=== PATIENT | male | born 2000 | race Caucasian/White ===

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

== ENCOUNTER 2022-02-21 08:06 | Inpatient (IN) | payer BC, MEDICAID, SELFPAY ==
[2022-02-21] VITALS (7 sets, daily range): BP systolic 112–141; BP diastolic 67–87; PULSE 55–89; RESP 14–16; TEMP 36.2–37.2; O2SAT 98–100; BMI 21.6
--- NOTE | 2022-02-21 08:21 | CT_ITS ---
INDICATION: abdominal pain -- IV PO Contrast EXAMINATION: CT ABDOMEN AND PELVIS WITH CONTRAST - CT Abdomen And Pelvis W/ Contrast Injection TECHNIQUE: Helically acquired images were obtained of the abdomen and pelvis following IV contrast. A radiation dose optimization technique was used for this scan. IV Contrast dosage and agent: 100 mL of [id number]. Oral contrast: GASTROGRAFIN. COMPARISON: None. FINDINGS: LOWER CHEST: Lung bases are clear. No cardiomegaly or pericardial effusion. LIVER: Homogeneous. No focal mass. GALLBLADDER AND BILIARY TREE: No calcified gallstones. No gallbladder distension or wall edema. No intra- or extrahepatic biliary ductal dilation. PANCREAS: No focal cystic or solid mass. SPLEEN: Normal size without focal cystic or solid mass. ADRENAL GLANDS: No nodules. KIDNEYS AND URETERS: Normal renal size and position. No hydronephrosis. PERITONEUM: No ascites or free air. No other fluid collection. BOWEL: A donut-shaped appearance with bowel within bowel appearance is seen in the right lower quadrant) the small bowel loops, at this level also there is cessation of the flow of contrast visualized findings suggestive of an intussusception cyst seen on axial series 2 image 86, coronal series 601 image 32 and sagittal series 602 image 6. Mild prominence of the opacified proximal small bowel loops is visualized on axial series 2 image 89 that measure approximately 1.5 cm in diameter, the distal small bowel loops are not opacified and measure 0.6 cm as seen on axial series 2 image 83. Mild thickening of the wall of the terminal ileum is visualized on coronal series 601 image 33. The appendix demonstrates unremarkable opacification of its lumen with no surrounding soft tissue stranding is visualized on coronal series 601 image 29-31. Mild thickening of the mcnair of the large bowel visualized most prominent in the sigmoid colon along the left lateral aspect of the pelvis is visualized on axial series 2 image 88, coronal series 601 image 51 and sagittal series 602 image 90 7 No evidence of acute appendicitis. No stomach or bowel distension. No focal inflammatory change. LYMPH NODES: No enlarged mesenteric or retroperitoneal lymph nodes. VESSELS: Aorta is non-dilated. URINARY BLADDER: Unremarkable. REPRODUCTIVE ORGANS: No pelvic masses. ABDOMINAL WALL: No discrete abdominal or pelvic wall hernia. BONES: No lytic or blastic abnormality. CT/Abdomen/Pelvis WITH Contrast IMPRESSION: Small bowel in bowel appearance suggestive of INTUSSUSCEPTION visualized in the right pelvis. Thickening of the wall of the bowel loops visualized most prominent in the sigmoid colon but no evidence of acute diverticulitis. The appendix is visualized and is unremarkable. Gallbladder is unremarkable. No evidence of obstructive uropathy. Electronically Signed: Timothy Ferreira MD at 10:20 EDT ,
--- NOTE | 2022-02-21 08:22 | EX.ED.DYSGE1 ---
HPI History of Present Illness Chief Complaint: Abd Pain Narrative Narrative: Patient presents with right upper quadrant abdominal pain for 2 days. No nausea or vomiting he has had somewhat decreased p.o. intake. No anorexia. No recent fever or chills, he has no flank pain or urinary symptoms. He has no upper abdominal pain. He has 1 bowel movement a day but he thinks he could be backed up. PFSH PFS Medical History Asthma Home Medications mometasone 220 mcg/actuation(60 doses) breath activated powder inhaler 220 mcg inhalation DAILY 04/19/19 [History Last Taken Unknown] montelukast 10 mg tablet 10 mg PO DAILY 10/05/20 [History Last Taken Unknown] albuterol sulfate 90 mcg/actuation aerosol inhaler 2 puff inhalation Q4H PRN PRN Shortness Of Breath 10/11/20 [History Last Taken Unknown] Allergy/AdvReac Type Severity Reaction Status Date / Time amoxicillin [Amoxicillin] Allergy Rash Verified 02/21/22 08:07 Social History Smoking Status: Never smoker ROS ROS ED ROS Narrative Past medical history: Asthma Medications: Reviewed Social history: Noncontributory Review of systems: All systems negative except as indicated General: No fever Eyes: No visual changes ENT: No upper airway congestion, normal voice Neck: No neck pain Cardiovascular: No chest pain Respiratory: No shortness of breath or cough Gastrointestinal: As in HPI Genitourinary: No dysuria Musculoskeletal: Denies myalgias no difficulty with ambulation Skin: No rash Neurological: No memory loss, confusion or any focal weakness Psych: No recent behavioral changes Hematologic: No easy bleeding or easy bruising EXAM Physical Exam Narrative Exam Narrative: Physical exam General: Well nourished, Well developed, No Acute Distress Head: Normocephalic, Atraumatic Eyes: Conjunctiva not pale ENT: Moist mucous membranes Neck: Supple, Nontender, No lymphadenopathy Cardiovascular: Regular rate, Regular rhythm Respiratory: No distress, CTA bilaterally Abdomen: Soft, there is tenderness in the right lower quadrant especially at [place], there is no guarding or rebound. He has no right upper quadrant or left-sided abdominal pain. Relatively benign exam other than specific point at [place]ney's. Back: Nontender, Normal Inspection. Negative for: CVA tenderness Extremities: Nontender, No edema Skin: Normal color, No rash Neurological: Alert, Normal Strength, Normal Sensation Psychological: Normal affect Const Vital Signs: 02/21/22 08:07 02/21/22 10:24 Temperature 97.2 F L Temperature Source Temporal Pulse Rate 86 74 Respiratory Rate 14 16 Blood Pressure 141/72 H 125/67 H Blood Pressure Mean 95 86 Pulse Ox 99 100 Oxygen Delivery Method Room Air Room Air MDM MDM MDM Narrative Medical decision making narrative: Patient is found to have intussusception, he still has some pain therefore I called surgery, they will evaluate in the emergency department. Lab Data Labs: Laboratory Results - last 24 hr 02/21/22 02/21/22 02/21/22 08:34 08:45 08:45 WBC 6.1 RBC 5.04 Hgb 15.6 Hct 44.7 MCV 88.7 MCH 31.0 MCHC 34.9 RDW Std Deviation 37.2 RDW Coeff of Cara 11.6 Plt Count 283 MPV 10.0 Immature Gran % (Auto) 0.300 Neut % (Auto) 60.6 Lymph % (Auto) 25.3 Gregory % (Auto) 10.7 H Eos % (Auto) 2.3 Baso % (Auto) 0.8 Absolute Neuts (auto) 3.7 Absolute Lymphs (auto) 1.54 Nucleated RBC % 0 Sodium 140 Potassium 4.3 Chloride 102 Carbon Dioxide 28.0 Anion Gap 10 BUN 11 Creatinine 1.03 Estim Creat Clear Calc 111.60 Est GFR (MDRD) Af Amer 119 Est GFR (MDRD) Non-Af 98 BUN/Creatinine Ratio 10.7 Glucose 105 Calcium 9.6 Total Bilirubin 1.40 H AST 17 ALT 19 Alkaline Phosphatase 60 Total Protein 8.0 Albumin 4.6 Globulin 3.4 Albumin/Globulin Ratio 1.4 Urine Color Yellow Urine Clarity Clear Urine pH 6.0 Ur Specific [place] 1.010 Urine Protein Negative Urine Glucose (UA) Normal Urine Ketones 15 H Urine Occult Blood Negative Urine Nitrite Negative Urine Bilirubin Negative Urine Urobilinogen Normal Ur Leukocyte Esterase Negative Urine RBC 0 SEEN Urine WBC 0 SEEN Ur Squamous Epith Cells 0 SEEN Urine Bacteria 0 SEEN Urine Mucus 0 SEEN Radiography Diagnostic Testing: Clinical Impression(s) from Imaging Studies Abdomen/Pelvis CT 02/21/22 08:21 IMPRESSION: Small bowel in bowel appearance suggestive of INTUSSUSCEPTION visualized in the right pelvis. Thickening of the wall of the bowel loops visualized most prominent in the sigmoid colon but no evidence of acute diverticulitis. The appendix is visualized and is unremarkable. Gallbladder is unremarkable. No evidence of obstructive uropathy. Electronically Signed: Timothy Ferreira MD at 10:20 EDT , Discharge Plan Triage Chief Complaint: Abd Pain ED Provider: Ja Madrid Dx/Rx/DC Orders Clinical Impression: Abdominal pain, Intussusception Prescriptions: No Action mometasone 220 MCG inhaler 220 mcg inhalation DAILY montelukast 10 MG tablet 10 mg PO DAILY albuterol sulfate 1 PUFF inhaler 2 puff INHALATION Q4H PRN PRN (Reason: Shortness Of Breath) Primary Care Provider: Warren Velasquez Referrals: Warren Velasquez MD [Primary Care Provider] -
[2022-02-21 08:38] LABS: Bacteria 0 SEEN /hpf (None Seen); Mucous, Urine 0 SEEN /hpf (<or=2+); Red Blood Cells-Urine 0 SEEN /hpf (0-5); Squamous Epithelial Cells - UA 0 SEEN /hpf (0-5); White Blood Cells 0 SEEN /hpf (0-5)
[2022-02-21 08:40] LABS: Color, Urine Yellow (Yellow); Glucose, Dipstick Normal (Normal); Ketone-Dipstick 15 mg/dl (Negative); Leukocyte Esterase-Dipstick Negative /ul (Negative); Nitrite-Dipstick Negative (Negative); Occult Blood-Urine Negative /ul (Negative); Protein-Dipstick Negative (Negative); Urine Bilirubin Dipstick Negative (Negative); Urine Clarity Clear (Clear); Urine Urobilinogen Normal (Normal)
[2022-02-21 08:50] LABS: Absolute Lymphocyte Count 1.54 X10^3/uL (0.83-4.51); Absolute Neutrophil Count 3.7 X10^3/uL (2.0-7.7); Basophil# 0.05 X10^3/uL; Basophil% 0.8 % (0-1); Eosinophil# 0.14 X10^3/uL; Eosinophils% 2.3 % (0-5); Hematocrit 44.7 % (40-54); Hemoglobin 15.6 g/dL (13.0-16.5); Lymphocyte # 1.54 X10^3/ul (0.83-4.51); Lymphocyte % 25.3 % (19-41); Mean Corp Hgb Conc 34.9 g/dL (32-36); Mean Corpuscular Volume 88.7 fL (80-94); Monocyte# 0.65 X10^3/uL; Monocyte% 10.7 % (0-10); NRBC Flagged by Analyzer 0 % (0-5); Neutrophil # 3.69 X10^3/uL (2.7-7.7); Neutrophil % 60.6 % (47-70); Platelet Count 283 K/mm3 (150-450); RBC Distribution Width CV 11.6 % (11.6-14.6); RBC Distribution Width SD 37.2 fl (35.1-43.9); Red Blood Count 5.04 M/mm3 (4.6-6.2); White Blood Count 6.1 K/mm3 (4.4-11.0)
[2022-02-21 09:09] LABS: ALB/GLOB Ratio 1.4 RATIO (0.9-2.4); AST(SGOT) 17 U/L (15-37); Alanine Aminotransfer ALT/SGPT 19 U/L (16-61); Albumin, Serum 4.6 g/dL (3.2-5.0); Alkaline Phosphatase 60 U/L (45-117); Anion Gap 10 (5-15); BUN 11 mg/dL (7-18); BUN/Creat Ratio 10.7 RATIO (10-20); Calcium,Total 9.6 mg/dL (8.5-10.1); Chloride 102 mmol/L (98-107); Creatinine, Serum 1.03 mg/dL (0.70-1.30); EST Glomerular Filtration Rate 98 mL/min (>60); Est Glom Filt Rate - Afr Amer 119 mL/min (>60); Globulin 3.4 g/dL (2.2-4.2); Glucose 105 mg/dL (74-106); Potassium 4.3 mmol/L (3.5-5.1); Sodium Level 140 mmol/L (136-145)
--- NOTE | 2022-02-21 12:37 | HP.PCM.SX_ITS ---
HPI - General General Date of Admission: 02/21/22 HPI Narrative KILO VINCENT, is a 21 M who presents with abdominal pain that has been going on since spring. He says over the last 3 days have been worse than it has been but he has been having abdominal pain especially after eating for few months. He says of the last 3 days he has been experiencing worsening of right lower quadrant pain. No nausea or vomiting. Denies any fevers or chills. [facility] Medical History Asthma Home Medications mometasone 220 mcg/actuation(60 doses) breath activated powder inhaler 220 mcg inhalation DAILY 04/19/19 [History Last Taken Unknown] montelukast 10 mg tablet 10 mg PO DAILY 10/05/20 [History Last Taken Unknown] albuterol sulfate 90 mcg/actuation aerosol inhaler 2 puff inhalation Q4H PRN PRN Shortness Of Breath 10/11/20 [History Last Taken Unknown] Allergy/AdvReac Type Severity Reaction Status Date / Time amoxicillin [Amoxicillin] Allergy Rash Verified 02/21/22 08:07 Social History Smoking Status: Never smoker ROS Constitutional Constitutional: Denies anorexia, fatigue, fever(s) or headache(s) Eyes Eyes: Denies blurry vision ENT HEENT: Denies abnormal hearing Cardiovascular Cardiovascular: Denies chest pain Respiratory/Chest Respiratory/Chest: Denies cough or dyspnea Gastrointestinal Gastrointestinal: Reports abdominal pain and constipation; Denies diarrhea, dysphagia, nausea or vomiting Genitourinary Genitourinary: Denies change in urinary stream Musculoskeletal Musculoskeletal: Denies abnormal gait Integumentary Integumentary: Denies jaundice Neurologic Neurologic: Denies abnormal gait Psychiatric Psychiatric: Denies anxiety Endocrine Endocrinology: Denies flushing Hematologic/Lymphatic Hematologic/Lymphatic: Denies easy bleeding Vital Signs Vital Signs Vital Signs: 02/21/22 08:07 02/21/22 10:24 02/21/22 11:33 Temperature 97.2 F L 98.9 F Temperature Source Temporal Temporal Pulse Rate 86 74 88 Respiratory Rate 14 16 14 Blood Pressure 141/72 H 125/67 H 126/78 H Blood Pressure Mean 95 86 94 Pulse Ox 99 100 99 Oxygen Delivery Method Room Air Room Air Room Air 02/21/22 12:00 Temperature Temperature Source Pulse Rate 89 Respiratory Rate 14 Blood Pressure 112/78 Blood Pressure Mean 89 Pulse Ox 99 Oxygen Delivery Method Room Air Weight Weight: 150 lb 12.739 oz Body Mass Index (BMI) 21.6 Physical Exam Const oriented x3 and no apparent distress Resp normal respiratory effort Cardio regular rate and regular rhythm GI soft to palpation Palpation: tender RLQ Extremity normal to inspection Results Lab / Micro Data Result Diagrams: 02/21/22 08:45 02/21/22 08:45 Labs: Laboratory Results - last 24 hr 02/21/22 08:34: Urine Color Yellow, Urine Clarity Clear, Urine pH 6.0, Ur Specific [place] 1.010, Urine Protein Negative, Urine Glucose (UA) Normal, Urine Ketones 15 H, Urine Occult Blood Negative, Urine Nitrite Negative, Urine Bilirubin Negative, Urine Urobilinogen Normal, Ur Leukocyte Esterase Negative, Urine RBC 0 SEEN, Urine WBC 0 SEEN, Ur Squamous Epith Cells 0 SEEN, Urine Bacteria 0 SEEN, Urine Mucus 0 SEEN 02/21/22 08:45: WBC 6.1, RBC 5.04, Hgb 15.6, Hct 44.7, MCV 88.7, MCH 31.0, MCHC 34.9, RDW Std Deviation 37.2, RDW Coeff of Cara 11.6, Plt Count 283, MPV 10.0, Immature Gran % (Auto) 0.300, Neut % (Auto) 60.6, Lymph % (Auto) 25.3, [place] % (Auto) 10.7 H, Eos % (Auto) 2.3, Baso % (Auto) 0.8, Absolute Neuts (auto) 3.7, Absolute Lymphs (auto) 1.54, Nucleated RBC % 0 02/21/22 08:45: Sodium 140, Potassium 4.3, Chloride 102, Carbon Dioxide 28.0, Anion Gap 10, BUN 11, Creatinine 1.03, Estim Creat Clear Calc 111.60, Est GFR (MDRD) Af Amer 119, Est GFR (MDRD) Non-Af 98, BUN/Creatinine Ratio 10.7, Glucose 105, Calcium 9.6, Total Bilirubin 1.40 H, AST 17, ALT 19, Alkaline Phosphatase 60, Total Protein 8.0, Albumin 4.6, Globulin 3.4, Albumin/Globulin Ratio 1.4 Micro: Microbiology 02/21/22 11:35 Nasal Secretion SARS-CoV-2 Antigen (Rapid) - Final Radiology Impression Abdomen/Pelvis CT 02/21/22 08:21 IMPRESSION: Small bowel in bowel appearance suggestive of INTUSSUSCEPTION visualized in the right pelvis. Thickening of the wall of the bowel loops visualized most prominent in the sigmoid colon but no evidence of acute diverticulitis. The appendix is visualized and is unremarkable. Gallbladder is unremarkable. No evidence of obstructive uropathy. Electronically Signed: Timothy Ferreira MD at 10:20 EDT , Assessment & Plan Assessment/Plan (1) Intussusception: PLAN: The patient has been having abdominal pain and has had worsening right lower quadrant pain over the last 3 days. His white count is normal but his CT scan shows intussusception of the distal small bowel without filling of the terminal ileum. At this point I recommended exploratory laparoscopy with possible bowel resection and possible ileocecectomy if this area is close to the terminal ileum. I discussed the procedure in detail as well as laparoscopy to initially see the issue and likely convert to open for bowel resection. I discussed the procedure in detail as well as the risks including not limited to bleeding, infection, injury other organs. Patient understands the risks and is when to proceed. Patient will be admitted and kept n.p.o. overnight and tomorrow he will proceed with surgery. Jurgen Olson MD Pager: [facility] [address] [place] [address], [address] [place] [address] Office:
[2022-02-21] MEDS: 0.9% Normal Saline 1,000 ML 100 ML IV ×2 (14:18→22:56)
[2022-02-21] MEDS: Budesonide Respules 0.5 MG/2 ML AMPUL.NEB. INHALATION (19:10)
[2022-02-21] MEDS: 0.9% Saline Lock 10 ML Syringe IV ×3 (20:04→23:49)
[2022-02-21] MEDS: Ketorolac 15 MG/ML Vial IV (20:04)
[2022-02-21] MEDS: Morphine 2 MG/ML Syringe IV (23:49)
[2022-02-22] VITALS (19 sets, daily range): BP systolic 110–145; BP diastolic 53–88; PULSE 63–110; RESP 15–18; TEMP 36.3–37.2; O2SAT 89–100; BMI 21.6
[2022-02-22 07:15] LABS: Absolute Lymphocyte Count 1.54 X10^3/uL (0.83-4.51); Absolute Neutrophil Count 2.7 X10^3/uL (2.0-7.7); Basophil# 0.05 X10^3/uL; Eosinophil# 0.24 X10^3/uL; Eosinophils% 4.6 % (0-5); Lymphocyte # 1.54 X10^3/ul (0.83-4.51); Lymphocyte % 29.7 % (19-41); Mean Corp Hgb Conc 34.9 g/dL (32-36); Mean Corpuscular Hgb 31.4 pg (27.0-32.0); Mean Corpuscular Volume 90.1 fL (80-94); Monocyte# 0.68 X10^3/uL; Monocyte% 13.1 % (0-10); NRBC Flagged by Analyzer 0 % (0-5); Neutrophil # 2.67 X10^3/uL (2.7-7.7); Neutrophil % 51.4 % (47-70); Platelet Count 242 K/mm3 (150-450); RBC Distribution Width CV 11.5 % (11.6-14.6); RBC Distribution Width SD 38.5 fl (35.1-43.9); Red Blood Count 4.77 M/mm3 (4.6-6.2); White Blood Count 5.2 K/mm3 (4.4-11.0)
[2022-02-22] MEDS: Budesonide Respules 0.5 MG/2 ML AMPUL.NEB. INHALATION ×2 (07:41→19:20)
[2022-02-22 07:43] LABS: Anion Gap 9 (5-15); BUN 15 mg/dL (7-18); BUN/Creat Ratio 16.1 RATIO (10-20); Calcium,Total 8.5 mg/dL (8.5-10.1); Chloride 107 mmol/L (98-107); Creatinine, Serum 0.93 mg/dL (0.70-1.30); EST Glomerular Filtration Rate 110 mL/min (>60); Est Glom Filt Rate - Afr Amer 133 mL/min (>60); Glucose 62 mg/dL (74-106); Potassium 4.3 mmol/L (3.5-5.1); Sodium Level 139 mmol/L (136-145)
[2022-02-22] MEDS: NYSTATIN 500,000 UNIT/5 ML UDC 500000 UNIT PO ×2 (08:44→21:20)
[2022-02-22] MEDS: 0.9% Normal Saline 1,000 ML 100 ML IV ×2 (08:44→20:46)
[2022-02-22] MEDS: Morphine 2 MG/ML Syringe IV (09:03)
--- NOTE | 2022-02-22 10:45 | CASEMGMT ---
RN CM VEST BUSHELER CM to room to meet with patient for initial transition planning/care coordination assessment. RN DUSTY introduced self and role at [facility]. Pt voices understanding and consents to assessment at this time. Pt sitting up in chair in room in no distress at this time. Father in room visiting. Pt agreeable to father being present during assessment. Pt is A/O at this time and answers all questions appropriately. Care providers, pharmacy, and demographics verified/updated at this time. PCP: Dr Warren Velasquez Specialists: none Preferred Pharmacy: [facility] Retail Insurance: [place], [employer] Prescription Benefit: Yes Living Will/HPOA: States does not have LW or HCPOA . Interested in more information and would like to talk with SW at this time to complete paperwork. SW's, Chaya and Adriana, notified. LNOK: Father, Jam. Grandmother, Siena Living Arrangements: Lives w/grandmother. Independent. Transportation: Pt states drives self and states no transportation concerns at this time. DME: Denies using any DME HHC/SNF: No hx of either Pt wishes to return home and states has no concerns with going home at time of discharge. CM to follow for any discharge planning/needs. Pt and father voice no concerns/needs at this time. Advised them to ask for CM if any questions/concerns/needs arise. They voice understanding. PLAN: Home Katelyn YUN RN, CM
[2022-02-22] MEDS: Clindamycin 900 MG/50 ML BAG 75 MG IV (14:37)
[2022-02-22] MEDS: Bupivacaine 0.25% 30 ML Vial (15:35)
--- NOTE | 2022-02-22 15:54 | OP.PCM_ITS ---
Report of Operation Date of Procedure: 02/22/22 Pre-Operative Diagnosis: Intussusception small bowel Post-Operative Diagnosis: Right lower quadrant pain with normal exploratory laparotomy Surgery/Procedure Performed:: Exploratory laparoscopy converted to laparotomy Description of Procedure: Patient was brought back to the operating room and general anesthesia was induced. The abdomen was prepped and draped in usual sterile fashion. A mi dline incision was made superior to the umbilicus deep to the fascia which was elevated and incised. Port was placed into the abdomen and the abdomen was insufflated 15 mmHg. Camera was placed into the abdomen and there were no injuries from entry. Under direct visualization a 5 mm left lower quadrant and a 5 mm suprapubic port were placed. Using atraumatic graspers the terminal ileum was identified. The appendix and cecum appeared normal. The small bowel was run backward in its entirety and there appeared to be no intussusception of small bowel or recently intussuscepted segment of small bowel. At this time I wanted to ensure that there is no bleeding tumor causing intermittent intussusception and so the decision was made to convert to laparotomy. The ports were removed and the midline incision was lengthened and a wound retractor was placed. The distal ileum was delivered into the incision and the small bowel was run from distal to proximal feeling every segment of the small bowel between the fingers. There is no mass or firm area to cause a intussusception lead point. The bowel appeared normal and felt normal with no thickening or lymphadenopathy. At that point the small bowel was returned to the abdomen. The wound retractor was removed and the midline fascia was closed using 2 running 0 Vicryl sutures meeting in the middle. Next the skin incisions were injected with local anesthetic and then closed with interrupted 4-0 Monocryl suture. Steri-Strips and bandages were applied. Patient was awoken and taken to PACU in stable condition. Admit VTE Documentation VTE Mechan Device Prophylaxis: SCD's
--- NOTE | 2022-02-22 15:58 | DS.PCM_ITS ---
Providers Date of Admission: 02/21/22 Primary Care Physician: Dr. Warren Velasquez MD Reason For Visit: SMALL BOWEL INTUSSUSEPTION Diagnosis Discharge Diagnosis (1) Intussusception: Status: Acute Code(s): K56.1 - Intussusception Plan: The patient has been having abdominal pain and has had worsening right lower qu adrant pain over the last 3 days. His white count is normal but his CT scan shows intussusception of the distal small bowel without filling of the terminal ileum. At this point I recommended exploratory laparoscopy with possible bowel resection and possible ileocecectomy if this area is close to the terminal ileum. I discussed the procedure in detail as well as laparoscopy to initially see the issue and likely convert to open for bowel resection. I discussed the procedure in detail as well as the risks including not limited to bleeding, infection, injury other organs. Patient understands the risks and is when to proceed. Patient will be admitted and kept n.p.o. overnight and tomorrow he will proceed with surgery. Jurgen Olson MD Pager: [facility] [address] [place] [address], [address] [place] [address] Office: Medications at Discharge Home Medications montelukast 10 mg tablet 10 mg PO DAILY allergies 10/05/20 albuterol sulfate 90 mcg/actuation aerosol inhaler 2 puff inhalation Q4H PRN PRN Shortness Of Breath 10/11/20 mometasone-formoterol HFA 100 mcg-5 mcg/actuation aerosol inhaler (Dulera) 2 inh inhalation BID breathing 02/21/22 acetaminophen 325 mg tablet (Tylenol) 650 mg PO Q4H PRN PRN Pain 1-10 Or Fever #0 tabs 02/22/22 docusate sodium 100 mg capsule (DOK) 100 mg PO BID 10 days #20 caps 02/22/22 oxycodone-acetaminophen 5 mg-325 mg tablet (Percocet) 1 tab PO Q4H PRN pain 5 days #20 tabs 02/22/22 Hospital Course Operations - (Exploratory laparotomy) Procedures None Summary of Care Provided Hospital Course: The patient was having right lower quadrant pain for several months and presented when the pain worsened over the last [address] scan showed intussusception of small bowel with decreased contrast in the distal small bowel. Patient was admitted and started on IV fluids. The following day the patient was taken for exploratory laparoscopy converted to laparotomy and no abnormalities were located. Patient was returned to the floor and slowly started on a diet and was tolerating diet was discharged. The patient will follow-up with me and discuss possible colonoscopy. Weight / BMI Weight Weight: 150 lb 12.739 oz Body Mass Index (BMI) 21.6 ABG / Lab / Microbiology Data Result Diagrams: 02/22/22 06:55 02/22/22 06:55 Laboratory: Laboratory Results - last 24 hr 02/22/22 06:55: WBC 5.2, RBC 4.77, Hgb 15.0, Hct 43.0, MCV 90.1, MCH 31.4, MCHC 34.9, RDW Std Deviation 38.5, RDW Coeff of Cara 11.5 L, Plt Count 242, MPV 10.0, Immature Gran % (Auto) 0.200, Neut % (Auto) 51.4, Lymph % (Auto) 29.7, [place] % (Auto) 13.1 H, Eos % (Auto) 4.6, Baso % (Auto) 1.0, Absolute Neuts (auto) 2.7, Absolute Lymphs (auto) 1.54, Nucleated RBC % 0 02/22/22 06:55: Sodium 139, Potassium 4.3, Chloride 107, Carbon Dioxide 23.0, Anion Gap 9, BUN 15, Creatinine 0.93, Estim Creat Clear Calc 123.60, Est GFR (MDRD) Af Amer 133, Est GFR (MDRD) Non-Af 110, BUN/Creatinine Ratio 16.1, Glucose 62 L, Calcium 8.5 Microbiology: Microbiology 02/21/22 11:35 Nasal Secretion SARS-CoV-2 Antigen (Rapid) - Final D/C Instructions Discharge Diet: Light diet - advance as tolerated Discharge Activity: May Not Drive (for 2-3 days or while still on narcotics) and May Shower Lifting Restricted to (Lbs): 15 Lifting Restrictions: 15 lbs for 3 weeks Call your doctor if your incision/area has: Continuous Slow Oozing, Sudden Increased Bleeding, Increased Pain/ Swelling, Increased Redness, Foul Smelling Discharge and Swelling at the incision site Call your doctor if you observe: Fever of 101 or Higher Remove Dressing in: 2 days (Remove clear bandages in 2 days, remove Steri-Strips in 7 to 10 days) Cleanse incision/area with: Soap & Water Please Follow Up With: Juregn Olson MD When: Please call to schedule 2 week follow up appointment. [phone] Meaningful Use Info Meaningful Use Diagnoses (Choose all that apply): None applicable Discharge Plan Admission Admit Date/Time: 02/21/22 11:30 Attending Provider: Jurgen Olson Primary Care Provider: Warren Velasquez Discharge Orders/Prescriptions Prescriptions: New acetaminophen [Tylenol] 325 mg Tablet 650 mg PO Q4H PRN PRN (Reason: Pain 1-10 Or Fever) Qty: 0 0RF docusate sodium [DOK] 100 mg capsule 100 mg PO BID 10 Days Qty: 20 0RF oxycodone-acetaminophen [Percocet] 5-325 mg tablet 1 tab PO Q4H PRN (Reason: pain) 5 Days Qty: 20 0RF Continued montelukast 10 MG tablet 10 mg PO DAILY albuterol sulfate 1 PUFF inhaler 2 puff INHALATION Q4H PRN PRN (Reason: Shortness Of Breath) Dulera 100-5 mcg/actuation HFA aerosol inhaler 2 inh INHALATION BID Label Comments: INHALE 2 PUFFS BY MOUTH 2 TIMES Referrals / Follow Up: Warren Velasquez MD [Primary Care Provider] -
--- NOTE | 2022-02-22 16:19 | CASEMGMT ---
Social Work SW in to complete Advanced Directives with Pt. Pt named his father, Jam Alexandre, SHON. Pt declined to complete LW documents at this time. Originals and copies given to pt. Copy placed on pt's chart. NASREEN Carlson
[2022-02-22] MEDS: Ketorolac 15 MG/ML Vial IV (19:01)
[2022-02-22] MEDS: Ondansetron 4 MG/2 ML Vial IV (19:01)
[2022-02-23] VITALS (7 sets, daily range): BP systolic 118–148; BP diastolic 57–82; PULSE 63–77; RESP 14–18; TEMP 36.4–37.1; O2SAT 94–100
[2022-02-23] MEDS: Ibuprofen 600 MG Tablet PO ×2 (00:07→06:38)
[2022-02-23] MEDS: 0.9% Normal Saline 1,000 ML 100 ML IV ×2 (05:28→15:43)
[2022-02-23] MEDS: Budesonide Respules 0.5 MG/2 ML AMPUL.NEB. INHALATION ×2 (07:09→20:06)
[2022-02-23] MEDS: oxyCODONE 5 MG Tablet PO ×4 (08:33→22:57)
--- NOTE | 2022-02-23 08:33 | PCM.PN.SRG ---
Subjective Subjective Patient complains of abdominal pain in epigastric area?trying Oxy to see if that helps. Patient has not had any flatus. Patient is taking a small amount of clears. Patient is currently up in the chair planning to walk today. Objective Data Objective Data Vital Signs: Vital Signs Temp Pulse Resp BP Pulse Ox O2 Del Method O2 Flow Rate 98.8 F 66 18 144/82 H 100 Room Air 2 02/23/22 08:24 02/23/22 08:24 02/23/22 08:24 02/23/22 08:24 02/23/22 08:24 02/23/22 08:24 02/22/22 17:00 Oxygen Flow Rate (L/min) 2 Oxygen Delivery Method Room Air Weight: 150 lb 12.739 oz Body Mass Index (BMI) 21.6 Intake & Output: Intake and Output for Last 24 Hours 02/21/22 02/22/22 02/23/22 23:59 23:59 23:59 Intake Total 790.00 / 790.00 5130 / 5130 1470 / 1470 Output Total 500 / 500 1600 / 1600 Balance 790.00 / 790.00 4630 / 4630 -130 / -130 Lab / Micro Data Result Diagrams: 02/22/22 06:55 02/22/22 06:55 Micro: Microbiology 02/21/22 11:35 Nasal Secretion SARS-CoV-2 Antigen (Rapid) - Final Physical Exam Resp normal respiratory effort Cardio regular rate GI GI Narrative: Abdomen: Soft, nondistended, tender near incision's dressed clean dry and intact, no peritoneal signs Assessment & Plan Assessment/Plan (1) Intussusception: PLAN: on CT--not seen on ex lap (2) S/P exploratory laparotomy: PLAN: Plan Continue clears till patient has increased bowel function. Continue pain control with oxy Encourage ambulation. If patient still here over the weekend Dr. Mead will be rounding. Chastity Kelly M.D. Pager: [phone] [facility] [address] [place] [address], [facility], [address] [place] [id number] Office: [phone]
[2022-02-23] MEDS: Pantoprazole Sodium 40 MG Tablet PO (10:21)
[2022-02-23] MEDS: NYSTATIN 500,000 UNIT/5 ML UDC 500000 UNIT PO ×4 (10:21→22:25)
[2022-02-23] MEDS: Montelukast 10 MG Tablet PO (10:21)
--- NOTE | 2022-02-23 10:27 | NURSING ---
IN TO GIVE MEDICATION, PT NOTED TO BE JOKING AND CONVERSING WITH VISITOR. PT STATES DID WALK THE GOTTI. PT STATES OXYIR 5MG NOT EFFECTIVE. STATES I DIDN'T EVEN FEEL IT I HAD NO EFFECTS FROM IT, LIKE IT THOUGHT IT MAY MAKE ME FEEL LOOPY OR BUZZED I FELT NOTHING PT AGAIN VERBALIZED HE HAD FELT NO EFFECTS WHEN HE WAS IN THE RECOVERY ROOM AFTER SURGERY APART FROM ITCHING. DISCUSSED SECOND 5MG OXYIR AT THIS TIME.
[2022-02-23] MEDS: Ketorolac 15 MG/ML Vial IV (12:08)
[2022-02-23] MEDS: 0.9% Saline Lock 10 ML Syringe IV (12:09)
[2022-02-24] VITALS (7 sets, daily range): BP systolic 126–145; BP diastolic 89–104; PULSE 60–66; RESP 12–18; TEMP 36.3–36.8; O2SAT 98–100
[2022-02-24] MEDS: 0.9% Normal Saline 1,000 ML 100 ML IV ×3 (01:30→21:12)
[2022-02-24] MEDS: Budesonide Respules 0.5 MG/2 ML AMPUL.NEB. INHALATION ×2 (07:29→19:41)
[2022-02-24] MEDS: oxyCODONE 5 MG Tablet PO ×4 (07:54→18:05)
--- NOTE | 2022-02-24 09:02 | PCM.PN.SRG ---
Subjective Subjective Patient has had no BMs as of yet. Still complaining of abdominal pain Objective Data Objective Data Dressings are dry appropriate incisional tenderness no rebound guarding or peritoneal signs Vital Signs: Vital Signs Temp Pulse Resp BP Pulse Ox O2 Del Method O2 Flow Rate 98.0 F 60 16 137/95 H 100 Room Air 2 02/24/22 08:00 02/24/22 08:00 02/24/22 08:00 02/24/22 08:00 02/24/22 08:00 02/24/22 08:00 02/22/22 17:00 Oxygen Flow Rate (L/min) 2 Oxygen Delivery Method Room Air Weight: 150 lb 12.739 oz Body Mass Index (BMI) 21.6 Intake & Output: Intake and Output for Last 24 Hours 02/22/22 02/23/22 02/24/22 23:59 23:59 23:59 Intake Total 5130 / 5130 3360 / 3360 1378.33 / 1378.33 Output Total 500 / 500 1600 / 1600 Balance 4630 / 4630 1760 / 1760 1378.33 / 1378.33 Lab / Micro Data Result Diagrams: 02/22/22 06:55 02/22/22 06:55 Micro: Microbiology 02/21/22 11:35 Nasal Secretion SARS-CoV-2 Antigen (Rapid) - Final Assessment & Plan Assessment/Plan (1) Intussusception: PLAN: Await GI function. Once has bowel movements we will be able to discharge him home
[2022-02-24] MEDS: NYSTATIN 500,000 UNIT/5 ML UDC 500000 UNIT PO ×4 (09:43→21:11)
[2022-02-24] MEDS: Montelukast 10 MG Tablet PO (09:43)
[2022-02-24] MEDS: Pantoprazole Sodium 40 MG Tablet PO (09:43)
[2022-02-25] VITALS (8 sets, daily range): BP systolic 136–156; BP diastolic 84–104; PULSE 56–84; RESP 12–17; TEMP 36.7–37.1; O2SAT 98–100
[2022-02-25] MEDS: oxyCODONE 5 MG Tablet PO ×4 (05:31→21:20)
[2022-02-25] MEDS: 0.9% Normal Saline 1,000 ML 100 ML IV ×2 (07:19→17:12)
--- NOTE | 2022-02-25 07:23 | PCM.PN.SRG ---
Subjective Subjective Passing some flatus. Pain has improved. No bowel movements as of yet. Objective Data Objective Data Dressings are dry. No rebound guarding or peritoneal signs. Vital Signs: Vital Signs Temp Pulse Resp BP Pulse Ox O2 Del Method O2 Flow Rate 98.0 F 56 L 12 149/97 H 100 Room Air 2 02/25/22 02:00 02/25/22 02:00 02/25/22 02:00 02/25/22 02:00 02/25/22 02:00 02/25/22 02:00 02/22/22 17:00 Oxygen Flow Rate (L/min) 2 Oxygen Delivery Method Room Air Weight: 150 lb 12.739 oz Body Mass Index (BMI) 21.6 Intake & Output: Intake and Output for Last 24 Hours 02/23/22 02/24/22 02/25/22 23:59 23:59 23:59 Intake Total 3360 / 3360 4648.33 / 5048.33 1850 / 1850 Output Total 1600 / 1600 Balance 1760 / 1760 4648.33 / 5048.33 1850 / 1850 Lab / Micro Data Result Diagrams: 02/22/22 06:55 02/22/22 06:55 Micro: Microbiology 02/21/22 11:35 Nasal Secretion SARS-CoV-2 Antigen (Rapid) - Final Assessment & Plan Assessment/Plan (1) Intussusception: PLAN: Patient is improving. Await discharge pending return to GI function.
[2022-02-25] MEDS: Budesonide Respules 0.5 MG/2 ML AMPUL.NEB. INHALATION ×2 (07:39→19:45)
[2022-02-25] MEDS: NYSTATIN 500,000 UNIT/5 ML UDC 500000 UNIT PO ×4 (10:13→21:20)
[2022-02-25] MEDS: Pantoprazole Sodium 40 MG Tablet PO (10:13)
[2022-02-25] MEDS: Montelukast 10 MG Tablet PO (10:13)
[2022-02-25] MEDS: Albuterol 2.5 MG/3 ML VIAL.NEB. INHALATION (21:40)
[2022-02-26 02:55] VITALS: BP 145/90; PULSE 61; RESP 14; TEMP 36.9; O2SAT 100
[2022-02-26] MEDS: 0.9% Normal Saline 1,000 ML 100 ML IV (03:00)
[2022-02-26] MEDS: Polyethylene Glycol 3350 17 GM PACKET PO (08:21)
[2022-02-26 08:24] VITALS: BP 156/101; PULSE 60; RESP 16; TEMP 36.6
[2022-02-26] MEDS: Ibuprofen 600 MG Tablet PO (08:39)
--- NOTE | 2022-02-26 09:27 | PN_ITS ---
Progress Note Patient reports he is doing well. He is passing copious flatus. No nausea or vomiting and tolerating regular diet. I will give the patient MiraLAX as he has not had a bowel movement and he has been tolerating a diet. I will also discharge him home today and follow-up with him in 2 weeks. At that time we will discuss colonoscopy for his right lower quadrant pain as his laparoscopy was normal. Jurgen Olson MD Pager: [facility] [address] [place] [address] [address] [place] [address] Office:
[2022-02-26] MEDS: Montelukast 10 MG Tablet PO (09:58)
[2022-02-26] MEDS: NYSTATIN 500,000 UNIT/5 ML UDC 500000 UNIT PO (09:58)
[2022-02-26] MEDS: Pantoprazole Sodium 40 MG Tablet PO (09:58)
--- NOTE | 2022-02-26 10:10 | PHA.DC.MC ---
Pharmacy Service has performed discharge medication reconciliation and counseling for this patient. 1. ACETAMINOPHEN 650MG PO Q4H PRN PAIN 2. DOCUSATE 100MG PO BID 3. PERCOCET 5/325MG 1T PO Q4H PRN PAIN The patient's discharge medication list was reviewed for discrepancies and discrepancies were resolved. Home Medications montelukast 10 mg tablet 10 mg PO DAILY allergies 10/05/20 albuterol sulfate 90 mcg/actuation aerosol inhaler 2 puff inhalation Q4H PRN PRN Shortness Of Breath 10/11/20 mometasone-formoterol HFA 100 mcg-5 mcg/actuation aerosol inhaler (Dulera) 2 inh inhalation BID breathing 02/21/22 acetaminophen 325 mg tablet (Tylenol) 650 mg PO Q4H PRN PRN Pain 1-10 Or Fever #0 tabs 02/22/22 docusate sodium 100 mg capsule (DOK) 100 mg PO BID 10 days #20 caps 02/22/22 oxycodone-acetaminophen 5 mg-325 mg tablet (Percocet) 1 tab PO Q4H PRN pain 5 days #20 tabs 02/22/22 The patient was counseled on the following discharge medications and changes in medications for homegoing were reviewed. The Reason for Use, instructions for use, and potential side effects were reviewed for all new medications. The patient's questions regarding all of their medications were answered. The patient was able to verbally demonstrate an understanding of their discharge medications. Patient counseled by pharmacy picking techJason.
[2022-02-26] MEDS: Budesonide Respules 0.5 MG/2 ML AMPUL.NEB. INHALATION (10:41)
[2022-02-26] MEDS: Albuterol 2.5 MG/3 ML VIAL.NEB. INHALATION (10:41)
[2022-02-26 11:10] VITALS: PULSE 77; RESP 21
== END 2022-02-26 11:40 | disposition home or self-care (01) | DRG 358 ==
LOC: ED 11:51 → MS3 13:04
PROVIDERS: Admitting Provider Surgery; Emergency Provider Emergency Medicine; PCP Pediatrics; Visit Provider Surgery
PROC: 0WJG4ZZ Inspection of Peritoneal Cavity, Percutaneous Endoscopic Approach (ICD-10-PCS; CPT 44202; principal; 2022-02-22 14:10)
DX: K56.1 Intussusception (principal); J45.909 Unspecified asthma, uncomplicated; Z53.31 Laparoscopic surgical procedure converted to open procedure; Z20.822 Contact with and (suspected) exposure to COVID-19; Z79.51 Long term (current) use of inhaled steroids; Z79.899 Other long term (current) drug therapy
CPT/HCPCS: 36415; 74177; 80048; 80053; 81001; 85025; 87811; 94640; 97802; 99284; J7030; J7120; Q9967; A4216; J2405

== ENCOUNTER 2023-02-15 23:55 | Emergency (ER) | payer BC, MEDICAID, SELFPAY ==
[2023-02-15 23:59] VITALS: BP 153/85; PULSE 92; RESP 18; TEMP 37; O2SAT 97; BMI 20.2
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
[2023-02-16] MEDS: Ibuprofen 600 MG Tablet PO (00:36)
== END 2023-02-16 00:37 | disposition home or self-care (01) ==
LOC: ED 02-16 00:29
PROVIDERS: Emergency Provider Emergency Medicine; Visit Provider Emergency Medicine
DX: S16.1XXA Strain of muscle, fascia and tendon at neck level, initial encounter (principal); S60.221A Contusion of right hand, initial encounter; V49.40XA Driver injured in collision with unspecified motor vehicles in traffic accident, initial encounter
CPT/HCPCS: 99283